=== PATIENT | male | born 1985 | race Caucasian/White ===

== ENCOUNTER 2021-10-28 09:01 | Emergency (ER) | payer OTHER ==
[~2021-10-28 09:01] MED LIST: NAPROSYN500 MG PO
[2021-10-28 10:37] LABS: CORONAVIRUS 2019 SARS-COV-2 NEGATIVE (NEGATIVE); INFLUENZA A NAA NEGATIVE (NEGATIVE)
== END 2021-10-28 11:28 | disposition home or self-care (01) ==
LOC: FER 09:01
PROVIDERS: Emergency Medicine
DX: J06.9 Acute upper respiratory infection, unspecified (principal); Z20.822 Contact with and (suspected) exposure to COVID-19
CPT/HCPCS: 99283; U0002